=== PATIENT | male | born 1960 | race Caucasian/White ===

== ENCOUNTER 2017-07-24 22:47 | Emergency (ER) | payer OTHER ==
[~2017-07-24] VITALS: Ht 182.9 cm; Wt 79.4 kg
--- NOTE | 2017-07-24 22:51 | ED AMS/SEIZURE/WEAK/DIZZY ---
History of Present Illness General Chief Complaint: ETOH/Drug Related Complaint Stated Complaint: BIBA FOR UNRESPONSIVE Source: EMS Exam Limitations: clinical condition Vital Signs & Intake/Output Vital Signs & Intake/Output Vital Signs Date Time Temp Pulse Resp B/P B/P Pulse O2 O2 Flow FiO2 Mean Ox Delivery Rate 07/25 0832 98.2 146 20 129/87 94 Room Air 07/25 0247 97.5 89 18 149/80 97 Nasal 2.0L Cannula 07/25 0039 98.0 81 18 125/79 94 Nasal 2.0L Cannula 07/24 2345 97.9 88 20 153/80 99 Room Air 07/24 2256 98.3 82 18 168/99 98 Room Air ED Intake and Output 07/25 0000 07/24 1200 Intake Total 5 Output Total Balance 5 Intake, IV 5 Patient 175 lb Weight Weight Estimated Measurement Method Allergies Coded Allergies: No Known Allergies (07/25/17) Triage Nurses Notes Reviewed? yes Onset: Abrupt Duration: minute(s): Timing: single episode today Injury Environment: home Severity: moderate Modifying Factors: Improves With: rest. Associated Symptoms: confusion HPI: 56 yo gentleman brought in by ambulance presents with mental status change. Per the medics, he was found unconscious in the hallway of a hotel. 911 was called. When they arrived, he was awake, speaking with slurred speech, smelling of etoh. He was combative en route. He denies trauma or pain. (Blaine BAÑUELOS,Kunal Cevallos) Reconcile Medications No Known Home Medications (Stephanie BAÑUELOS,Finn Apodaca) Past History Travel History Traveled to [place] past 21 day No Medical History Any Pertinent Medical History? see below for history (unknown due to pt condition) Surgical History Surgical History: unobtainable Psychosocial History What is your primary language Scottish Family History Hx Contributory? No (Blaine BAÑUELOS,Kunal Cevallos) Review of Systems Review of Systems Constitutional: Reports: no symptoms. EENTM: Reports: no symptoms. Respiratory: Reports: no symptoms. Cardiovascular: Reports: no symptoms. GI: Reports: no symptoms. Genitourinary: Reports: no symptoms. Musculoskeletal: Reports: no symptoms. Skin: Reports: no symptoms. Neurological/Psychological: Reports: no symptoms. Hematologic/Endocrine: Reports: no symptoms. Immunologic/Allergic: Reports: no symptoms. All Other Systems: Reviewed and Negative (Kunal Valladares MD) Physical Exam Physical Exam General Appearance: well developed/nourished, no apparent distress Head: atraumatic, normal appearance Eyes: Bilateral: normal appearance. Ears, Nose, Throat: normal pharynx, normal ENT inspection Neck: normal inspection, no midline tenderness Respiratory: normal breath sounds, chest non-tender, no respiratory distress Cardiovascular: regular rate/rhythm Gastrointestinal: normal bowel sounds, soft, non-tender Back: normal inspection, normal range of motion Extremities: normal range of motion, evidence of injury Neurologic/Psych: no motor/sensory deficits, awake, alert Skin: intact, normal color Comments: pt wearing red cocktail dress and panty hose Core Measures ACS in differential dx? No CVA/TIA Diagnosis No Sepsis Present: No Sepsis Focused Exam Completed? No (Kunal Valladares MD) Progress Differential Diagnosis: alcohol intoxication, dehydration, electrolyte imbalance , intracranial Hem. Plan of Care: Orders Procedure Date/time Status Regular Diet 07/25 B Active Code Status 07/24 2319 Active URINE DRUG SCREEN FOR ER ONLY 07/24 2252 Complete TROPONIN LEVEL 07/24 2252 Complete ETHANOL 07/24 2252 Complete COMPREHENSIVE METABOLIC PANEL 07/24 2252 Complete CBC WITHOUT DIFFERENTIAL 07/24 2252 Complete EKG 07/24 2252 Active Current Medications Sig/Azucena Start time Last Medication Dose Stop Time Status Admin Sodium Chloride 1,000 ML BOLUS ONE 07/25 0830 AC 07/25 (Normal Saline 0.9%) 07/25 0929 0835 Laboratory Tests 07/24/17 2310: Anion Gap 19 H, Estimated GFR > 60, BUN/Creatinine Ratio 20.0, Glucose 97, Calcium 9.2, Total Bilirubin 0.4, AST 33, ALT 37, Alkaline Phosphatase 59, Troponin I < 0.01, Total Protein 8.5 H, Albumin 4.9, Globulin 3.6, Albumin/ Globulin Ratio 1.4, CBC w Diff NO MAN DIFF REQ, RBC 5.40, MCV 99.4 H, MCH 32.9 H, RDW 15.5 H, MPV 6.9 L, Gran % 60.9, Lymphocytes % 34.6, Monocytes % 3.5, Eosinophils % 0.8, Basophils % 0.2, Absolute Granulocytes 6.2, Absolute Lymphocytes 3.5 H, Absolute Monocytes 0.4, Absolute Eosinophils 0.1, Absolute Basophils 0, PUBS MCHC 33.1, Serum Alcohol 484.0 Diagnostic Imaging: Viewed by Me: CT Scan. Discussed w/RAD: CT Scan. Radiology Impression: head/cervical ct... no acute fx/bleed PATIENT: PATSY RAMOS PRESENT AGE: 56 PATIENT ACCOUNT NO: [id number] : 62 LOCATION: [facility] ORDERING PHYSICIAN: Kunal Valladares MD SERVICE DATE: 07/24/17 EXAM TYPE: CAT - CT CERV SPINE WO IV CONTRAST; CT HEAD WO IV CONTRAST EXAMINATION: CT HEAD WITHOUT CONTRAST CT CERVICAL SPINE WITHOUT CONTRAST CLINICAL INFORMATION: Mental status change, fall. COMPARISON: None. TECHNIQUE: Contiguous axial imaging was performed from the skull base to vertex without intravenous administration of contrast. Multidetector helical imaging was performed through the cervical spine. Coronal and sagittal reformats were completed at the technologist workstation. DLP: 648 mGy-cm. FINDINGS: HEAD: There is no evidence of acute intracranial hemorrhage or evolved territorial infarction. No abnormal mass effect or midline shift is seen. Cortical alvarado to white matter differentiation is well preserved without evidence of territorial infarct. No extra-axial fluid collections are identified. No hydrocephalus. The osseous structures and scalp soft tissues are normal. The mastoid air cells are well aerated. There is moderate opacification of the left maxillary sinus. Mild mucosal sinus disease of the right maxillary sinus and ethmoid air cells are noted. CERVICAL SPINE: No acute fracture or dislocation is identified in the cervical spine. Vertebral body heights are maintained. The atlantoaxial articulation is normally maintained. No prevertebral soft tissue swelling. The lung apices are clear. There is a chronic deformity of the left clavicle. There is mild multilevel spondylosis. A focal disc protrusion is noted at C5-C6. A prominent disc osteophyte complex is noted at C6-C7. IMPRESSION: 1. No acute intracranial pathology. 2. No evidence of acute cervical spine traumatic injury. 3. Paranasal sinus disease. 4. Mild multilevel cervical spondylosis most prominent at C5-C6. DICTATED BY: Jaleel Barakat MD DATE/TIME DICTATED:07/25/1715 WASTEWATER MANAGER:NAT DATE/TIME TRANSCRIBED:07/25/1715 CONFIDENTIAL, DO NOT COPY WITHOUT APPROPRIATE AUTHORIZATION. <Electronically signed in Other Vendor System> SIGNED BY: Jaleel Barakat MD 07/25/17 0026 Initial ED EKG: NSR, nonspecific ST T wave chg, no acute change Hand-Off Endorsed To: Finn Brown MD Endorsed Time: 0700 Pending: labs, other (clinical sobriety) (Blaine BAÑUELOS,Kunal Cevallos) Comments: Patient is awake alert and oriented 3. Patient's ex- is here to pick him up. Patient walks with a steady gait. Patient denies any suicidal or homicidal ideation. Patient is stable for discharge. (Finn Brown MD) Departure Departure Disposition: HOME OR SELF CARE Condition: Stable Clinical Impression Primary Impression: Alcohol intoxication Referrals: Elie BAÑUELOS,Adrian Montano (PCP/Family) Departure Forms: Customer Survey General Discharge Information PA/PIPE FITTER APPRENTICE Co-Sign Statement Statement: ED Attending supervision documentation- [x] I saw and evaluated the patient. I have also reviewed all the pertinent lab results and diagnostic results. I agree with the findings and the plan of care as documented in the PA's/PIPE FITTER APPRENTICE's documentation. 07/24/17, 23:17... evaluated patient in ct scan suite... pt with mid epigastric tenderness, but appears to be more comfortable after supportive medications. pt merits admission, iv fluids, parenteral pain medications, and management of his pancreatitis. [] I have reviewed the ED Record and agree with the PA's/PIPE FITTER APPRENTICE's documentation. [] Additions or exceptions (if any) to the PAs/PIPE FITTER APPRENTICE's note and plan are summarized below: [] (Blaine BAÑUELOS,Kunal Cevallos) Departure Additional Instructions: RETURN FOR ANY CONCERNS Prescriptions: Current Visit Scripts No Known Home Medications (Finn Brown MD)
[2017-07-24 23:24] LABS: ABSOLUTE BASOPHIL COUNT 0 /CUMM (0.0-0.2); ABSOLUTE EOSINOPHIL COUNT 0.1 /CUMM (0.0-0.7); ABSOLUTE GRANULOCYTE CT 6.2 /CUMM (1.4-6.5); ABSOLUTE LYMPH COUNT 3.5 /CUMM (1.2-3.4); ABSOLUTE MONOCYTE COUNT 0.4 /CUMM (0.10-0.60); BASOPHIL % 0.2 % (0.0-2.0); EOSINOPHIL % 0.8 % (0-5); GRANULOCYTE % 60.9 % (42.2-75.2); HEMATOCRIT 53.7 % (42-52); MEAN CORPUSCULAR HGB 32.9 PG (27.0-31.0); MEAN CORPUSCULAR HGB CONC 33.1 G/DL (33.0-37.0); MEAN CORPUSCULAR VOLUME 99.4 FL (80.0-94.0); MEAN PLATELET VOLUME 6.9 FL (7.4-10.4); PLATELET COUNT 298 /CUMM (130-400); RBC DISTRIBUTION WIDTH 15.5 % (11.5-14.5); WHITE BLOOD CELL COUNT 10.2 /CUMM (4.8-10.8)
--- NOTE | 2017-07-25 00:26 | CT SCAN REPORT ---
EXAMINATION: CT HEAD WITHOUT CONTRAST CT CERVICAL SPINE WITHOUT CONTRAST CLINICAL INFORMATION: Mental status change, fall. COMPARISON: None. TECHNIQUE: Contiguous axial imaging was performed from the skull base to vertex without intravenous administration of contrast. Multidetector helical imaging was performed through the cervical spine. Coronal and sagittal reformats were completed at the technologist workstation. DLP: 648 mGy-cm. FINDINGS: HEAD: There is no evidence of acute intracranial hemorrhage or evolved territorial infarction. No abnormal mass effect or midline shift is seen. Cortical alvarado to white matter differentiation is well preserved without evidence of territorial infarct. No extra-axial fluid collections are identified. No hydrocephalus. The osseous structures and scalp soft tissues are normal. The mastoid air cells are well aerated. There is moderate opacification of the left maxillary sinus. Mild mucosal sinus disease of the right maxillary sinus and ethmoid air cells are noted. CERVICAL SPINE: No acute fracture or dislocation is identified in the cervical spine. Vertebral body heights are maintained. The atlantoaxial articulation is normally maintained. No prevertebral soft tissue swelling. The lung apices are clear. There is a chronic deformity of the left clavicle. There is mild multilevel spondylosis. A focal disc protrusion is noted at C5-C6. A prominent disc osteophyte complex is noted at C6-C7. IMPRESSION: 1. No acute intracranial pathology. 2. No evidence of acute cervical spine traumatic injury. 3. Paranasal sinus disease. 4. Mild multilevel cervical spondylosis most prominent at C5-C6.
[2017-07-25 09:22] VITALS: BP 122/84
== END 2017-07-25 09:23 ==
LOC: ERH 22:47
PROVIDERS: Pediatrics
DX: F10.129 Alcohol abuse with intoxication, unspecified (principal); R47.81 Slurred speech
CPT/HCPCS: 80307; 93005; 93010; 96361; 96372; 96374; G0480; J1630

== ENCOUNTER 2017-08-11 17:52 | Inpatient (IN) | payer OTHER ==
[~2017-08-11] VITALS: Ht 182.9 cm; Wt 80.4 kg
--- NOTE | 2017-08-11 17:56 | ED PSYCHIATRIC COMPLAINT ---
See Addendum History of Present Illness General Chief Complaint: Psychiatric Related Complaint Stated Complaint: +SI, +ETOH Source: patient, EMS Exam Limitations: intoxication Vital Signs & Intake/Output Vital Signs & Intake/Output Vital Signs Date Time Temp Pulse Resp B/P B/P Pulse O2 O2 Flow FiO2 Mean Ox Delivery Rate 08/13 0645 97.5 75 18 163/99 08/13 0645 97.5 75 18 163/99 97 Room Air 08/13 0430 97.4 74 18 154/88 08/13 0430 97.4 74 18 154/88 98 Room Air 08/13 0230 97.4 62 16 160/85 08/13 0230 97.4 62 16 160/85 97 Room Air 08/13 0030 97.5 74 16 158/86 08/13 0030 97.5 74 16 158/86 96 Room Air 08/12 2228 97.6 84 16 155/88 95 Room Air 08/12 2102 Room Air 08/12 2102 97.4 76 16 150/90 98 Room Air 08/12 2101 97.4 76 16 150/90 08/12 1805 98.2 92 18 160/96 98 Room Air 08/12 1538 97.5 84 18 172/94 98 Room Air 08/12 1537 97.5 84 18 172/94 08/12 1334 98.6 98 20 168/108 98 08/12 1254 98.4 104 18 168/100 98 Room Air 08/12 0944 98.6 98 18 168/88 08/12 0944 98.6 98 18 168/88 98 Room Air ED Intake and Output 08/13 0000 08/12 1200 Intake Total 425 Output Total 375 Balance 50 Intake, Oral 425 Output, Urine 375 Allergies Coded Allergies: No Known Allergies (07/25/17) Reconcile Medications No Known Home Medications Triage Note: BIBA ON PEER FOR +SI ALONG WITH ETOH ABUSE. PER PEER PT HAS BEEN DRINKING HEAVILY SINCE LAST NIGHT AND MAKING STATEMENTS THAT THERE IS NO REASON TO LIVE. UPON ARRIVAL PT ADMITS TO DRINKING AT LEAST 1 QUART OF LIQUOR TODAY. RELUCTANT TO ADMIT TO SI BUT GIRLFRIEND CONFIRMS HE HAS BEEN MAKING SI STATESMENTS. PT ASKING WHEN HE CAN GO HOME AND UPSET WHEN TOLD HE WILL LIKELY BE IN HOSPITAL AT LEAST OVERNIGHT DUE TO BEING ON A PEER. PT BECOMING SOMEWHAT AGIATED ABOUT THIS AND PRESENCE OF GIRLFRIEND UPSETTING HIM. VISITORS ASKED TO LEAVE FOR NOW Triage Nurses Notes Reviewed? yes Onset: Gradual Timing: recent history Severity: severe HPI: Patient is a 56-year-old male with history of alcohol abuse presenting to the emergency department via EMS for alcohol abuse and suicidal ideation. According to the patient he was very angry with himself today so he continued to drink throughout the day. His sister became concerned and called police. Patient was transported via EMS to the hospital for evaluation. Patient denies any nausea or vomiting fevers or chills chest pain or shortness of breath. Patient denies any hallucinations. No history of withdrawal seizures. Positive smoker, denies other drugs besides alcohol. He usually drinks half a pack daily, today he drank much more he reports. The sister found him passed out in the snow, unsure how long he was therefore. Patient denies hitting his head. No LOC. (Robina Burks) Past History Medical History Any Pertinent Medical History? see below for history Surgical History Surgical History: unobtainable Psychosocial History What is your primary language Slovenian Family History Hx Contributory? No (Robina Burks) Review of Systems Review of Systems Constitutional: Reports: see HPI. Comments Review of systems: See HPI, All other systems negative. Constitutional, no chills fever or weight loss HEENT: No visual changes no sore throat no congestion Cardiovascular: No palpitation, NO CP Skin, no jaundice no rashes Respiratory: No dyspnea cough sputum or hemoptysis GI: No nausea no vomiting : No dysuria No hematuria Muscle skeletal: no back pain, no neck pain, Neurologic: No numbness no headaches Psych: No stress anxiety or depression,. Heme/endocrine: No bruising no bleeding no polyuria or polydipsia Immunology: No splenectomy or history of AIDS (Robina Burks) Physical Exam Physical Exam General Appearance: intoxicated Neurological/Psychiatric: awake, INTOXICATION Comments: Well-developed well-nourished person in no acute distress HEENT: Pupils equally round and reactive to light and accommodation. Pupils approximately 3 mm bilaterally. Nose is atraumatic. Neck: Normal inspection Cardiovascular: Regular rate and rhythms no murmurs rubs or gallops, normal JVP Respiratory: No respiratory distress.breath sounds clear to auscultation bilaterally Extremity: No edema Neuro: Alert oriented x3, cranial nerves II through XII grossly intact. Skin: No appreciable rash on exposed skin, skin is warm and dry. Psych: Appears intoxicated, laughing throughout exam, avoidANT SAD PERSONS SAD PERSONS Response Value Male Sex? yes 1 Age <19 or >45 years? yes 1 Depression/Hopelessness? yes 2 Excessive Ethanol/Drug Use? yes 1 Rational Thinking Loss? yes 2 Social Support? has support 0 Total 7 SAD PERSONS Done? yes (Robina Burks) Progress Differential Diagnosis: drug intoxication, drug overdose, drug withdrawal, electrolyte abnormality, encephalitis, hypoglycemia Plan of Care: Orders Procedure Date/time Status Continuous Observation Monitor 08/13 0700 Active Continuous Observation Monitor 08/13 0300 Active Continuous Observation Monitor 08/12 2300 Active Continuous Observation Monitor 08/12 1900 Active Continuous Observation Monitor 08/12 1500 Active Continuous Observation Monitor 08/12 1100 Active Continuous Observation Monitor 08/12 0700 Active Current Medications Sig/Azucena Start time Last Medication Dose Stop Time Status Admin Lorazepam 2 MG 0800 08/12 1615 AC 08/13 (Ativan) 0757 Nicotine 21 MG DAILY 08/11 2117 UNVr 08/12 (Nicoderm) 1025 1 AM ETOH, SUICIDAL COMMENTS TO HIS SISTER. WILL NEED CRISIS EVALUATION WHEN SOBER. (Shira Joy MD) Diagnostic Imaging: Viewed by Me: Radiology Read, CT Scan. Discussed w/RAD: Radiology Read, CT Scan. Hand-Off Endorsed To: Shira Joy MD Endorsed Time: 0100 Pending: consult Comments: She will be signed out to Dr. JOY pending reevaluation in the morning. (Robina Burks) Hand-Off Endorsed To: Celestine Long MD Endorsed Time: 07 Pending: consult (CRISIS) (Shira Joy MD) Comments: 08:30 pt signed out to me by dr joy at shift changeover. pt resting comfortably. 08/12/2017 7:00:26 PM patient signed out to Dr. Lopez at shift global climate change analyst. (Celestine Long MD) Hand-Off Endorsed To: Celestine Cerda DO Endorsed Time: 0700 Pending: other (CPS bed or bedsearch) (Jessica BAÑUELOS,Mathew) Departure Departure Disposition: STILL A PATIENT Condition: Stable Referrals: Elie BAÑUELOS,Adrian Montano (PCP/Family) Departure Forms: Customer Survey General Discharge Information Prescriptions: Current Visit Scripts No Known Home Medications (Víctor BARRETO,Robina) Departure Clinical Impression Primary Impression: Depression with suicidal ideation Secondary Impressions: Alcohol abuse (Jessica BAÑUELOS,Mathew) Departure Comments 08/13/17 7 am The patient was signed out to me by Dr. Lopez at 7 am. (Celestine Cerda DO)
[2017-08-11 18:58] LABS: ABSOLUTE BASOPHIL COUNT 0 /CUMM (0.0-0.2); ABSOLUTE EOSINOPHIL COUNT 0.3 /CUMM (0.0-0.7); ABSOLUTE GRANULOCYTE CT 6.1 /CUMM (1.4-6.5); ABSOLUTE LYMPH COUNT 3.2 /CUMM (1.2-3.4); ABSOLUTE MONOCYTE COUNT 0.3 /CUMM (0.10-0.60); BASOPHIL % 0.3 % (0.0-2.0); GRANULOCYTE % 61.6 % (42.2-75.2); HEMATOCRIT 49.5 % (42-52); MEAN CORPUSCULAR HGB 33.3 PG (27.0-31.0); MEAN CORPUSCULAR HGB CONC 33.8 G/DL (33.0-37.0); MEAN CORPUSCULAR VOLUME 98.4 FL (80.0-94.0); MEAN PLATELET VOLUME 7.3 FL (7.4-10.4); PLATELET COUNT 368 /CUMM (130-400); RBC DISTRIBUTION WIDTH 15.1 % (11.5-14.5); RED BLOOD CELL CT 5.03 /CUMM (4.70-6.10)
[2017-08-12] VITALS (7 sets, daily range): BP systolic 116–172; BP diastolic 63–94
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
[2017-08-13] VITALS (13 sets, daily range): BP systolic 142–163; BP diastolic 85–99
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
--- NOTE | 2017-08-13 14:42 | History & Physical ---
General Information and HPI MD Statement: I have seen and personally examined PATSY RAMOS and documented this H&P. The patient is a 56 year old M who presented with a patient stated chief complaint of alcohol intoxication Source of Information: patient Exam Limitations: no limitations History of Present Illness: 56-year-old male with past medical history significant for alcohol dependence, some depression and arthritis who presented with acute onset: Intoxication. Patient drinks heavy amounts of alcohol on daily basis and that mainly includes vodka. He admits to drinking quart of vodka prior to coming into the hospital. In the ambulance he made the statement "I just want to and this". Therefore he is admitted to Inpatient Psychiatry with acute on: Intoxication as well as possible suicidal ideation. Patient was cooperative during the interview. He currently does not complain of some neck pain but attributes the neck pain to his arthritis. He takes Aleve as needed. He is also a current smoker. 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 Psychosocial History Where do you live? Home ETOH Use: heavy use Review of Systems Review of Systems Constitutional: Reports: see HPI. EENTM: Reports: see HPI. Cardiovascular: Reports: see HPI. Respiratory: Reports: see HPI. GI: Reports: see HPI. Musculoskeletal: Reports: see HPI. Skin: Reports: see HPI. Neurological/Psychological: Reports: see HPI. Exam & Diagnostic Data Last 24 Hrs of Vital Signs/I&O Vital Signs Date Time Temp Pulse Resp B/P B/P Pulse O2 O2 Flow FiO2 Mean Ox Delivery Rate 08/13 1434 98.5 90 153/91 08/13 1433 98.5 90 153/91 08/13 1143 98.0 74 18 145/74 99 Room Air 08/13 1129 99 Room Air 08/13 0949 Room Air Room Air 08/13 0912 98.0 88 18 149/94 98 08/13 0645 97.5 75 18 163/99 08/13 0645 97.5 75 18 163/99 97 Room Air 08/13 0430 97.4 74 18 154/88 08/13 0430 97.4 74 18 154/88 98 Room Air 08/13 0230 97.4 62 16 160/85 08/13 0230 97.4 62 16 160/85 97 Room Air 08/13 0030 97.5 74 16 158/86 08/13 0030 97.5 74 16 158/86 96 Room Air 08/12 2228 97.6 84 16 155/88 95 Room Air 08/12 2102 Room Air 08/12 2102 97.4 76 16 150/90 98 Room Air 08/12 2101 97.4 76 16 150/90 08/12 1805 98.2 92 18 160/96 98 Room Air 08/12 1538 97.5 84 18 172/94 98 Room Air 08/12 1537 97.5 84 18 172/94 Intake & Output 08/13 1600 08/13 0800 08/13 0000 Intake Total 425 Output Total 375 Balance 50 Intake, Oral 425 Output, Urine 375 Patient 177 lb Weight Physical Exam General Appearance Alert, Oriented X3, Cooperative, No Acute Distress Skin No Rashes HEENT PERRLA Neck Supple Cardiovascular Regular Rate, Normal S1, Normal S2 Lungs Clear to Auscultation Abdomen Normal Bowel Sounds, Soft, No Tenderness Neurological Cranial Nerves II through XII: Intact Extremities No Edema Last 24 Hrs of Labs/Jn: Laboratory Tests 08/11 08/11 1820 1815 Chemistry Sodium (137 - 145 mmol/L) 150 H Potassium (3.5 - 5.1 mmol/L) 4.3 Chloride (98 - 107 mmol/L) 108 H Carbon Dioxide (22 - 30 mmol/L) 23 Anion Gap (5 - 16) 18 H BUN (9 - 20 mg/dL) 12 Creatinine (0.7 - 1.2 mg/dL) 0.9 Estimated GFR (>60 ml/min) > 60 BUN/Creatinine Ratio (7 - 25 %) 13.3 Glucose (65 - 99 mg/dL) 91 Calcium (8.4 - 10.2 mg/dL) 9.3 Total Bilirubin (0.2 - 1.3 mg/dL) 0.2 AST (17 - 59 U/L) 37 ALT (21 - 72 U/L) 51 Alkaline Phosphatase (< 127 U/L) 64 Total Protein (6.3 - 8.2 g/dL) 8.2 Albumin (3.5 - 5.0 g/dL) 4.9 Globulin (1.9 - 4.2 gm/dL) 3.3 Albumin/Globulin Ratio (1.1 - 2.2 %) 1.5 Amylase (30 - 110 U/L) 40 Lipase (23 - 300 U/L) 115 Hematology CBC w Diff NO MAN DIFF REQ WBC (4.8 - 10.8 /CUMM) 10.0 RBC (4.70 - 6.10 /CUMM) 5.03 Hgb (14.0 - 18.0 G/DL) 16.7 Hct (42 - 52 %) 49.5 MCV (80.0 - 94.0 FL) 98.4 H MCH (27.0 - 31.0 PG) 33.3 H RDW (11.5 - 14.5 %) 15.1 H Plt Count (130 - 400 /CUMM) 368 MPV (7.4 - 10.4 FL) 7.3 L Gran % (42.2 - 75.2 %) 61.6 Lymphocytes % (20.5 - 51.1 %) 31.7 Monocytes % (1.7 - 9.3 %) 3.4 Eosinophils % (0 - 5 %) 3.0 Basophils % (0.0 - 2.0 %) 0.3 Absolute Granulocytes (1.4 - 6.5 /CUMM) 6.1 Absolute Lymphocytes (1.2 - 3.4 /CUMM) 3.2 Absolute Monocytes (0.10 - 0.60 /CUMM) 0.3 Absolute Eosinophils (0.0 - 0.7 /CUMM) 0.3 Absolute Basophils (0.0 - 0.2 /CUMM) 0 PUBS MCHC (33.0 - 37.0 G/DL) 33.8 Toxicology Urine Opiates Screen (>2000 NG/ML) 151.00 Methadone Screen (>300 NG/ML) < 40 Barbiturate Screen (>200 NG/ML) < 60 Ur Phencyclidine Scrn (>25 NG/ML) < 6.00 Amphetamines Screen (>1000 NG/ML) < 100 U Benzodiazepines Scrn (>200 NG/ML) < 85 Urine Cocaine Screen (>300 NG/ML) < 50 Urine Cannabis Screen (>50 NG/ML) 65.30 H Serum Alcohol (<10 MG/DL) 379.0 Assessment/Plan Assessment: 56-year-old male with past medical history significant for alcohol use, depression who is admitted with acute adequate intoxication and suicidal ideation. Yesterday's labs show hypernatremia. I would repeat check the labs today. Patient has been started on Ativan per psych. He also has a nicotine patch and Nicorette gum can be used as well. Multivitamin, folate and thiamine have been ordered. Patient on some Aleve as needed for his aches and pains which we will order. As Ranked By This Provider Problem List: 1. Alcohol intoxication 2. Depression with suicidal ideation Miscellaneous Miscellaneous Documentation Attending Case Discussed With: Gisella Suazo MD Primary Care Physician: Adrian Delgadillo MD Patient sees these Specialists None Level of Patient Care: KEISHA Lares
--- NOTE | 2017-08-13 14:52 | CPS PROVIDER INIT ASMT PSYCH ---
Psychiatric Admission [employer] Officer's Note Reviewed: Yes Patient Seen and Examined: Yes Identifying Information: 56-year-old white male who presented to the emergency department on on a police emergency examination request. Chief Complaint: According to the police report the patient was "drinking heavily and wanted to drink himself to ." Reportedly, the patient has been drinking heavily and kept saying that that he has no reason to live and also reportedly or allegedly used a hypothetical gesture suggesting a gunshot wound to the head. The patient about alcohol level on arrival was 379 and the patient today acknowledges that he was intoxicated and he had no intention of actually killing himself. The patient does not own any guns and does not have access to guns. Reaction to Hospitalization: The patient was admitted voluntarily he added that he hopes that this is in a be a short stay History of Present Illness Onset of Illness: The patient reportedly had so many different treatments in the past and a total of 5 DUIs. However he has not had any DUI since for the past 10 years. Currently does not have any legal entanglements. Reportedly was sober for 9 years prior to his relapse in 2013 after his job changed. He is still employed. He reports that he has been drinking an average of 1-1/2 pints of vodka a day Circumstances Leading to Admission: Intoxication and allegedly making's make statements about hurting himself Problem(s) Justifying Need for Admission: Safety evaluation and risk assessment as well as detoxification from alcohol Past Psychiatric History Past Diagnosis(es)- if any: Alcohol use disorder, severe Past Precipitating Factors- if any: Relapsed on alcohol use - Include inpatient and outpatient treatment Treatment History: Has had several detoxifications and rehabs. He denied inpatient psychiatric hospitalizations for psychiatric reasons. Denied past history of suicide attempts. History of Suicide Attempts or Gestures No history of suicide attempts Substance Abuse History: The patient's primary substances and alcohol reported that his first drink was when he was about 17 or 18 he did have 5 DUIs the last one was 10 years ago and he did have a period of 9 years of sobriety. 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 Substance Use: No history of alcoholism or drug addictions according to the patient Suicides: No history of suicides among his blood relations Social History Living Situation: This the patient has been living with his girlfriend Tana Significant Relationships (family/friends): Girlfriend Education: High school graduate Vocation/Occupation: The patient is still currently employed Legal: Past DUIs but no current legal entanglements Healthly Behaviors Screening Tobacco Screening Tobacco Use from ED Docu: Current Daily Use Daily Tobacco Use Amount/Type: => 5 Cigarettes daily - If tobacco counseling indicated - the following topics are required. - #1 Recognizing dangerous situations. - #2 Coping Skills. - #3 Basic information about quitting. Status of Tobacco Cessation Counseling: #1, #2 AND #3 Completed Cessation Med Status Nicotine Patch Ordered Alcohol Screening - ETOH screen POS if BAL >=80 or Audit-C>= M4/F3 Audit-C Score from Diag Assess: 12 Blood Alcohol Level: Laboratory Tests 08/11 1815 Toxicology Serum Alcohol (<10 MG/DL) 379.0 Alcohol Use Screening Results: Pos per Audit C &/or BAL - If ETOH counseling indicated - the following topics are required. - #1 Express concern about the patient's - drinking at unhealthy levels, include informing - of national norms for moderate drinking: - men <= 14 drinks/week, max 4 drinks/occasion - women <= 7 drinks/week, max 3 drinks/occasion - #2 Providing feedback, including linking alcohol to - negative physical effects (liver injury, hypertension) - negative emotional effects (relationship problems and - depression) - negative occupational consequences (reduced work - performance) - #3 Advising the patient to abstain from alcohol or - to drink below national norms for moderate drinking - (as listed above). Status of ETOH Use Counseling: #1, #2 AND #3 Completed. Metabolic Screening - Screen if on a Neuroleptic Medication - Metabolic screening should include: - Blood Pressure, BMI, Glucose or Hgb A1c, & a - Lipid profile from within the past 365 days. Metabolic Screening (X) Not Applicable, patient not on a neuroleptic. OR () Patient on a neuroleptic(s) . Enter below results for Hemoglobin A1C, and lipid panel if obtained during the last 365 days. BMI: 24.000 Blood Pressure: 153/91 Laboratory Results From [facility] (If applicable): Exam and Plan Mental Status Examination Ambulation Status: The patient was steady on his feet Appearance: Patient has untrimmed ray Attitude towards examiner: Cooperative and calm and pleasant with good sense of humor Psychomotor activity: Normal psychomotor activity Behavior: No abnormalities Quality of speech: Normal speech not pressured not slurred Affect: Euthymic Mood: Denied current depression or anxiety Suicidal Ideation: Denies suicidal ideation Homicidal Ideation: Denies violent thoughts or homicidal ideation Hallucinations: Denied hallucinations Paranoid/Delusional Material: Denied feeling paranoid and there were no delusions Difficulties with thought organization: No difficulties with thought organization Insight: Partial insight Judgment: Seems intact Orientation: Oriented to time place and person Cognition: No cognitive deficits Memory Function: No impairments in memory Estimate of intellectual functioning: Average Assets/Strengths Patient Identified Assets/Strengths: Patient seems to be likable and honest Impression/Plan Impression and Plan: 56-year-old white male presented to the emergency department primarily seeking detoxification but was admitted because of allegedly making suicidal statements while intoxicated - Include all active medical diagnosis that require tx DSM 5 Diagnosis(es): Unspecified mood disorder Alcohol use disorder severe - Initial Tx Plan for Active Psych & Medical Conditions Treatment Plan: Inpatient psychiatric care 15 minute checks Ativan taper Additional Ativan for signs or symptoms of withdrawal Nursing staff to provide education and nursing assessments once a shift Group therapy Milieu therapy in Social work to obtain collateral information and start the process of discharge planning no regularly scheduled psychotropics at this point. The patient will be evaluated daily by a psychiatrist - Factors that would help patient function - in a less restrictive setting. Factors: Abstinence from alcohol
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
[2017-08-14] VITALS (10 sets, daily range): BP systolic 142–172; BP diastolic 85–95
--- NOTE | 2017-08-14 08:41 | CP SOUTH PROGRESS NOTE PSYCH ---
Psych (Inpt) Progress Note Progress Note PROGRESS NOTE SUBJECTIVE: Patient reports that he is doing very well with alcohol detox, feels that he has too much Ativan requesting lowering of the dose. Patient feels he is over sedated and "loopy" with the Ativan. Patient in agreement with lowering dose to 1 mg night and 0.5 mg in the morning and reassess. Denies any symptoms of withdrawal currently. Feels like he could stop the Ativan out right. Patient denies any other physical complaints or illness. Patient reports sleeping and eating well. Visiting with sister on the unit now. Denies SI/HI/AVH/SIB. No abnormal movements reported. Patient feels that he "said something stupid" while intoxicated regarding SI that brought him into the ED patient agrees that he should've been sent and under that circumstance however is feeling much better now, regrets that he said that, states "I ran my mouth when I was drunk." Patient states that he has work on Wednesday and also an appointment with [facility] 5 evenings a week starting August 25. Patient would be interested in discussing if the intake appointment could be moved up. Reviewed meds and psychoeducation provided. OBJECTIVE: Per nursing, pt did well overnight without any acute events. Pt remained in behavioral control, adherent with staff instructions and medications. VSS. Current Medications Sig/Azucena Start time Last Medication Dose Route Stop Time Status Admin Acetaminophen 650 MG Q6P PRN 08/13 1015 AC PO Al Hydroxide/Mg 30 ML Q4-6 PRN PRN 08/13 1015 AC Hydroxide PO Benztropine Mesylate 1 MG Q6P PRN 08/13 1015 AC PO Benztropine Mesylate 1 MG Q6P PRN 08/13 1015 AC IM Folic Acid 1 MG DAILY 08/14 1000 AC PO 08/16 1001 Folic Acid 0 .STK-MED ONE 08/13 0852 DC PO Gabapentin 300 MG Q6P PRN 08/13 1015 AC PO Haloperidol 5 MG Q6P PRN 08/13 1015 AC PO Haloperidol 5 MG Q6P PRN 08/13 1015 AC IM Lorazepam 0.5 MG 0000 08/18 0000 AC PO 08/18 0001 Lorazepam 0.5 MG Q6H 08/17 0000 AC PO 08/17 1801 Lorazepam 0.5 MG 1800 08/16 1800 AC PO 08/16 1801 Lorazepam 1 MG Q6H 08/16 0000 AC PO 08/16 1201 Lorazepam 1.5 MG Q12H 08/15 0600 AC PO 08/15 1801 Lorazepam 1 MG Q12H 08/15 0000 AC PO 08/15 1201 Lorazepam 1.5 MG Q6 08/14 0600 AC 08/14 PO 08/14 1801 0545 Lorazepam 2 MG Q6 08/13 1200 DC 08/13 PO 08/14 0001 2330 Lorazepam 0 .STK-MED ONE 08/13 1136 DC PO Lorazepam 2 MG Q6P PRN 08/13 1015 AC IM Lorazepam 2 MG Q2P PRN 08/13 1015 AC PO Lorazepam 1 MG Q2P PRN 08/13 1015 AC PO Lorazepam 2 MG 0800 08/12 1615 DC 08/13 PO 0757 Magnesium Hydroxide 30 ML AT BEDTIME NEED.. 08/13 1015 AC PO Multivitamins 1 TAB DAILY 08/14 1000 AC PO Multivitamins 0 .STK-MED ONE 08/13 0852 DC PO Naproxen 500 MG BID PRN 08/13 1445 AC PO Nicotine 2 MG Q2 HRS NEEDED PRN 08/13 1430 AC 08/13 PO 2121 Nicotine 0 .STK-MED ONE 08/13 1045 DC TOP Nicotine 21 MG DAILY 08/11 2117 AC 08/13 TOP 1046 Thiamine HCl 100 MG DAILY 08/14 1000 AC PO 08/16 1001 Thiamine HCl 0 .STK-MED ONE 08/13 1045 DC PO Thiamine HCl 100 MG ONCE ONE 08/13 1030 DC 08/13 PO 08/13 1031 1046 Trazodone HCl 50 MG AT BEDTIME NEED.. 08/13 1015 AC PO Laboratory Tests 08/14/17 0625: Anion Gap 12, Estimated GFR > 60, BUN/Creatinine Ratio 18.8, Hemoglobin A1c Pending, Triglycerides 136, Cholesterol 205 H, LDL Cholesterol, Calc 102, HDL Cholesterol 76 H, Cholesterol/HDL Ratio 3, TSH &T3 &Free T4 Intrp 3.170 08/13/17 1520: Anion Gap 15, Estimated GFR > 60, BUN/Creatinine Ratio 23.3 Vital Signs Date Time Temp Pulse Resp B/P B/P Pulse O2 O2 Flow FiO2 Mean Ox Delivery Rate 08/14 0759 97.5 99 146/94 08/14 0757 97.5 99 146/94 08/14 0544 96.6 75 99 172/95 08/13 2327 75 142/99 08/13 2201 79 147/88 08/138 98.0 95 142/93 08/13 1950 98.0 95 142/93 08/13 1905 89 156/90 08/13 1624 89 144/93 08/13 1615 89 144/93 08/13 1434 98.5 90 153/91 08/13 1433 98.5 90 153/91 08/13 1143 98.0 74 18 145/74 99 Room Air 08/13 1129 99 Room Air 08/13 0949 Room Air Room Air 08/13 0912 98.0 88 18 149/94 98 MSE: GENERAL: Alert and oriented x3, good eye contact, well-groomed, no apparent distress SPEECH: Moderate rate and volume, normal prosody, fluent MOTOR: No tics, tremors, stereotypy, or abnormal movements MOOD: "I'm really doing fine now" AFFECT: Calm, pleasant, mood congruent, good range, non-labile, well related THOUGHT PROCESS: Logical, linear and goal-directed THOUGHT CONTENT: No SI/HI/AVH/SIB, no apparent grandiosity, paranoia, delusions , obsessions, ruminations COGNITION: No apparent deficit in attention, memory or concentration JUDGMENT: good INSIGHT: good ASSESSMENT:56-year-old white male presented to the emergency department primarily seeking detoxification but was admitted because of allegedly making suicidal statements while intoxicated. At this time patient feels remorse over making any statements, feels like they were just "running my mouth" while intoxicated, denies past or any current SI/HI/AVH/SIB. Patient appears future oriented and forthcoming, well related with most of reasonable discharge plan already in place ([facility] starting 08/25/2017). Appears quickly moving through detox and tolerating medication regimen well. Discussed naltrexone as a possible anti-craving medication, patient will consider. DSM 5 Diagnosis(es): Unspecified mood disorder Alcohol use disorder severe PLAN: -maintain safety, vs tid, q15min checks -continue meds -changing ativan taper to 1 mg this evening and 0.5 mg po bid tomorrow -pt would like to see if SW could assist in moving up his intake appointment with [facility] -continue plan, likely dc Wednesday DSM 5 Diagnosis(es): Unspecified mood disorder Alcohol use disorder severe PLAN: -maintain safety, vs tid, q15min checks -continue meds -ativan taper for withdrawal -continue plan Alcohol use disorder severe PLAN: -maintain safety, vs tid, q15min checks -continue meds -ativan taper for withdrawal -continue plan
[2017-08-15] VITALS (7 sets, daily range): BP systolic 129–160; BP diastolic 84–95
--- NOTE | 2017-08-15 02:06 | CP SOUTH PROGRESS NOTE PSYCH ---
Psych (Inpt) Progress Note Progress Note Include the following elements, when applicable: Involvement in the active treatment of the patient with behavioral observations of the patient and the patient's response to the treatment. Review of the ongoing treatment process in the context of the treatment plan. Indication of how multi-disciplinary staff members are carrying out the treatment plan. Plans for future interventions and recommendations for revision of the treatment plan. Liaison with other physicians/providers. Progress Note: PROGRESS NOTE SUBJECTIVE: Patient reports that he is feeling "fine" today, feels like he is at his baseline, no signs or symptoms of alcohol withdrawal at this time. Patient did well with rapid lowering of Ativan from 1.5 mg 3 times a day yesterday to 1 mg last night and 0.5 mg this morning, CIWA scores have been 0 for 2 days. Will discontinue Ativan at this time, patient in agreement. Patient awoke with some right eye pain and swelling this morning, was seen by medicine. Patient has chalazion with instructions to use warm compresses several times a day, which she has been doing. Patient denies any other physical complaints or illness. Patient reports sleeping and eating well. Patient has visited with his girlfriend and his sister today. 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 Denies SI/HI/AVH/SIB. Patient feels remorseful over SI statement while he was intoxicated and has not felt any SI since being sober this admission. Patient has an IOP intake appointment on 08/25/2017 but would be interested in moving up the appointment if criminal justice social worker to assist with that Wednesday morning. Patient interested in starting naltrexone, risks and benefits discussed, labs reviewed, pt in agreement. OBJECTIVE: Per nursing, pt did well overnight without any acute events. Pt remained in behavioral control, adherent with staff instructions and medications. VSS. Current Medications Sig/Azucena Start time Last Medication Dose Route Stop Time Status Admin Acetaminophen 650 MG Q6P PRN 08/13 1015 AC PO Al Hydroxide/Mg 30 ML Q4-6 PRN PRN 08/13 1015 AC Hydroxide PO Benztropine Mesylate 1 MG Q6P PRN 08/13 1015 AC PO Benztropine Mesylate 1 MG Q6P PRN 08/13 1015 AC IM Folic Acid 1 MG DAILY 08/14 1000 AC 08/15 PO 08/16 1001 1017 Gabapentin 300 MG Q6P PRN 08/13 1015 AC PO Haloperidol 5 MG Q6P PRN 08/13 1015 AC PO Haloperidol 5 MG Q6P PRN 08/13 1015 AC IM Lorazepam 0.5 MG 0000 08/18 0000 CAN PO 08/18 0001 Lorazepam 0.5 MG Q6H 08/17 0000 DC PO 08/17 1801 Lorazepam 0.5 MG 1800 08/16 1800 DC PO 08/16 1801 Lorazepam 1 MG Q6H 08/16 0000 DC PO 08/16 1201 Lorazepam 0.5 MG BID 08/15 1000 AC 08/15 PO 08/15 2201 1017 Lorazepam 1.5 MG Q12H 08/15 0600 DC PO 08/15 1801 Lorazepam 1 MG Q12H 08/15 0000 DC PO 08/15 1201 Lorazepam 1 MG AT BEDTIME 08/14 2200 DC 08/14 PO 08/14 2201 2227 Lorazepam 1.5 MG Q6 08/14 0600 DC 08/14 PO 08/14 1801 1214 Lorazepam 2 MG Q6P PRN 08/13 1015 AC IM Lorazepam 2 MG Q2P PRN 08/13 1015 AC PO Lorazepam 1 MG Q2P PRN 08/13 1015 AC PO Magnesium Hydroxide 30 ML AT BEDTIME NEED.. 08/13 1015 AC PO Multivitamins 1 TAB DAILY 08/14 1000 AC 08/15 PO 1017 Naproxen 500 MG BID PRN 08/13 1445 AC PO Nicotine 2 MG Q2 HRS NEEDED PRN 08/13 1430 AC 08/15 PO 0729 Nicotine 21 MG DAILY 08/11 2117 AC 08/15 TOP 1018 Thiamine HCl 100 MG DAILY 08/14 1000 AC 08/15 PO 08/16 1001 1017 Trazodone HCl 50 MG AT BEDTIME NEED.. 08/13 1015 AC PO Laboratory Tests 08/14/17 0625: Anion Gap 12, Estimated GFR > 60, BUN/Creatinine Ratio 18.8, Hemoglobin A1c Pending, Triglycerides 136, Cholesterol 205 H, LDL Cholesterol, Calc 102, HDL Cholesterol 76 H, Cholesterol/HDL Ratio 3, TSH &T3 &Free T4 Intrp 3.170 08/13/17 1520: Anion Gap 15, Estimated GFR > 60, BUN/Creatinine Ratio 23.3 Vital Signs Date Time Temp Pulse Resp B/P B/P Pulse O2 O2 Flow FiO2 Mean Ox Delivery Rate 08/15 1154 78 143/92 08/15 1141 78 14392 08/15 0821 96.4 81 129/84 08/15 0816 96.4 81 129/84 08/14 2229 98.2 88 142/91 08/14 1956 98.3 96 153/94 08/14 195 98.3 96 153/94 08/14 1603 93 14385 08/14 1550 93 143 MSE: GENERAL: Alert and oriented x3, good eye contact, well-groomed, no apparent distress, washcloth over eye SPEECH: Moderate rate and volume, normal prosody, fluent MOTOR: No tics, tremors, stereotypy, or abnormal movements MOOD: "Im back to normal, ready to go" AFFECT: Calm, pleasant, mood congruent, good range, non-labile, well related THOUGHT PROCESS: Logical, linear and goal-directed THOUGHT CONTENT: No SI/HI/AVH/SIB, no apparent grandiosity, paranoia, delusions , obsessions, ruminations COGNITION: No apparent deficit in attention, memory or concentration JUDGMENT: good INSIGHT: good ASSESSMENT: 56-year-old white male presented to the emergency department primarily seeking detoxification but was admitted because of allegedly making suicidal statements while intoxicated. At this time patient feels remorse over making any statements, feels like they were just "running my mouth" while intoxicated, denies past or any current SI/HI/AVH/SIB. Patient appears future oriented and forthcoming, well related, mood stable. Pt tolerated rapid ativan taper, CIWAs 0 x 2 days, no ssx withdrawal. Pt in agreement with starting naltrexone as anti-caving agent, ordered NF to start tomorrow morning, counseled on liver labs and not being able to use opiates with this medication (is not taking any). Pt would like SW assistance in am to see if his [facility] intake appt could be moved up earlier than 08/25, when it is currently scheudled. Pts sister able to pick him up in the morning, will likely be ready for dc home with plan to do intake with [facility]. DSM 5 Diagnosis(es): Unspecified mood disorder Alcohol use disorder severe Chalazion PLAN: -maintain safety, vs tid, q15min checks -continue meds -dc ativan today -start naltrexone 50 mg po daily for alcohol craving -pt would like to see if SW could assist in moving up his intake appointment with [facility] earlier than 08/25 -pt should be ready for dc Wednesday am, sister available to pick him up in the morning.
[2017-08-16 07:29] VITALS: BP 143/85
[2017-08-16] MEDS ORDERED: NALTREXONE HCL50 M1 PO (08:34)
[2017-08-16] MEDS ORDERED: TRAZODONE HCL50 M1 PO (08:34)
[2017-08-16] MEDS ORDERED: GABAPENTIN300 M2 PO (08:34)
[2017-08-16] MEDS ORDERED: ATIVAN0.5 M1 PO (08:38)
--- NOTE | 2017-08-16 09:07 | DISCHARGE SUMMARY REPORT-PSYCH ---
Visit Information Visit Dates/Diagnosis' Admission Date: 08/13/2017 Discharge Date: 08/16/17 Reason for Admission: 56-year-old white male who presented to the emergency department on on a police emergency examination request. According to the police report the patient was "drinking heavily and wanted to drink himself to ." Reportedly, the patient has been drinking heavily and kept saying that that he has no reason to live and also reportedly or allegedly used a hypothetical gesture suggesting a gunshot wound to the head. The patient about alcohol level on arrival was 379 and the patient today acknowledges that he was intoxicated and he had no intention of actually killing himself. The patient does not own any guns and does not have access to guns. Psy Discharge Primary Diag: Mood Disorder Psy Discharge Secondary Diag: Alcohol Dependence Hospital Course Significant Lab Findings: Lab ALT 51 U/L 08/11/17 181 AST 37 U/L 08/11/17 181 Alkaline Phosphatase 64 U/L 08/11/17 1815 BUN 15 mg/dL 08/14/17 0625 Chloride 103 mmol/L 08/14/17 0625 Cholesterol 205 MG/DL H 08/14/17 0625 Creatinine 0.8 mg/dL 08/14/17 0625 HDL Cholesterol 76 mg/dL H 08/14/17 0625 Hemoglobin A1c 5.5 % 08/14/17 0625 LDL Cholesterol, Calc 102 mg/dL 08/14/17 0625 Potassium 4.0 mmol/L 08/14/17 0625 Sodium 140 mmol/L 08/14/17 0625 TSH &T3 &Free T4 Intrp 3.170 uIU/mL 08/14/17 0625 Total Bilirubin 0.2 mg/dL 08/11/17 1815 Total Protein 8.2 g/dL 08/11/17 1815 Triglycerides 136 mg/dL 08/14/17 0625 Serum Alcohol 379.0 MG/DL 08/11/17 1815 Urine Cannabis Screen 65.30 NG/ML H 08/11/17 1820 Course Complications: No complications, uneventful detoxification Consultations: Patient was seen by Dr. Gisella Suazo MD, on 08/13/2017 Her assessment and Plan as follows: Assessment: 56-year-old male with past medical history significant for alcohol use, depression who is admitted with acute adequate intoxication and suicidal ideation. Yesterday's labs show hypernatremia. I would repeat check the labs today. Patient has been started on Ativan per psych. He also has a nicotine patch and Nicorette gum can be used as well. Multivitamin, folate and thiamine have been ordered. Patient on some Aleve as needed for his aches and pains which we will order. Problem List: 1. Alcohol intoxication 2. Depression with suicidal ideation Primary Care Physician: Adrian Delgadillo MD Patient sees these Specialists None Level of Patient Care: [facility] Allergies: Coded Allergies: No Known Allergies (07/25/17) Hospital Course/TX Response: On 08/13/2017 Impression and Plan on admission: 56-year-old white male presented to the emergency department primarily seeking detoxification but was admitted because of allegedly making suicidal statements while intoxicated DSM 5 Diagnosis(es): Unspecified mood disorder Alcohol use disorder severe - Initial Tx Plan for Active Psych & Medical Conditions Inpatient psychiatric care 15 minute checks Ativan taper Additional Ativan for signs or symptoms of withdrawal Nursing staff to provide education and nursing assessments once a shift Group therapy Milieu therapy in Social work to obtain collateral information and start the process of discharge planning no regularly scheduled psychotropics at this point. The patient will be evaluated daily by a psychiatrist Patient had an uneventful detoxification over the weekend of Wednesday and Wednesday the and 08/15/2017. The patient was reevaluated on 08/16/2017 and he felt that he was ready for discharge. Mental status upon discharge: Guerrero reported that he has been feeling "fine"/denied feeling depressed, no signs or symptoms of alcohol withdrawal at this time, sleeping and eating well, over the weekend, visited with his girlfriend and sister, denied SI/HI, alert and oriented x3, good eye contact, well-groomed, no apparent distress, moderate rate and volume of speech, normal prosody, fluent , no tics, tremors, or abnormal movements, calm, pleasant, mood congruent, good range, non-labile, thoughts were logical, linear and goal-directed, no apparent grandiosity, paranoia, delusions, obsessions, ruminations, and no apparent deficit in attention, memory or concentration ASSESSMENT: A 56-year-old White male presented to the emergency department primarily seeking detoxification but was admitted because of allegedly making suicidal statements while intoxicated. Patient appears future oriented and forthcoming, well related, mood stable. Pt in agreement with starting naltrexone as anti-caving agent Diagnoses: Unspecified mood disorder Alcohol use disorder severe Chalazion Treatment PLAN Update: D/C Home Follow up with IOP Discharge HBIPS - Tobacco Use Treatment Offered Post DC Medications Offered: Refused Tob Medication Tx Post DC Tobacco Treatment Plan: Refused Tobacco Tx Pgm - EtOH/Drug Use D/O Treatment Offered Post DC Medications Offered: Script Given-See Med List Post DC EtOH/SubAbuse TX Plan: Car SubAbuse/Dual IOP Metabolic Screening - Screen if on a Neuroleptic Medication - Metabolic screening should include: - Blood Pressure, BMI, Glucose or Hgb A1c, & a - Lipid profile from within the past 365 days. Metabolic Screening ([X]) Not Applicable, patient not on a neuroleptic. OR () Patient on a neuroleptic(s) . Enter below results for Hemoglobin A1C, and lipid panel if obtained during the last 365 days. BMI: 24.000 Blood Pressure: 143/85 Laboratory Results From [facility] (If applicable): Discharge Instructions General Discharge Information Multiple Neuroleptics: (X) Not Applicable OR Document below three failed attempts at monotherapy, or a plan to taper to monotherapy, or augmentation of Clozapine. () Discharge Diet Regular Discharge Activity Normal DC Disposition: Home Referrals Ordered Referrals Provider Referral 08/17/17 For Groups: [[facility]] [facility] dual track for mental health and substance use Intake 08/17/17 1:15pm [address] [id number] Provider Referral 08/18/17 For Groups: Outpatient Psychiatry [facility] Smoking Cessation Group 08/18/17 4pm [address] [id number] Prescriptions Start taking the following new medications: Naltrexone HCl (Naltrexone HCl) 50 MG TABLET 50 Milligram ORAL DAILY Qty = 14 No Refills Comments: Last Taken:08/16/17 Time:0900 Gabapentin (Gabapentin) 300 MG CAPSULE 300 Milligram ORAL EVERY SIX HOURS NEEDED as needed for ANXIETY/AGITATION /INSOMNIA Qty = 45 No Refills Comments: Last Taken:NOT GIVEN IN THE HOSPITAL Time: Trazodone HCl (Trazodone HCl) 50 MG TABLET 50 Milligram ORAL AT BEDTIME NEEDED as needed for INSOMNIA Qty = 15 No Refills Comments: Last Taken:NOT GIVEN IN THE HOSPITAL Time: Lorazepam (Ativan) 0.5 MG TABLET 1 Tablet ORAL THREE TIMES Qty = 3 No Refills Comments: Last Taken:08/15/17 Time:1000 Copies To: [facility]
--- NOTE | 2017-08-16 10:00 | SOCIAL WORKER PROG NOTE PSYCH ---
Social Work Progress Note Progress Note I was informed by the team that Guerrero was stable and would most likely discharge today. Introduced myself to Guerrero. He was a little irritable stating that he has had more people meet with him today than the whole time he has been here. I explained that social work is not here on the weekend. I asked about his weekend? He said that he was very bored and that there should be more to do over the weekend other than use crayons or watercolors. He found that activity to be demeaning for a 56 year old man. He doesn't feel he needs to be here for psychiatric reasons and that he was just here for detox. I explained that the reason he was admitted here was due to suicidal statements. He stated he is not suicidal. He denied making these kind of statements on a regular basis and stated it was an isolated incident while he was intoxicated. He is willing to follow up in the dual [facility] here at [place]. He would most likely need to go to a 5-8 track, due to working from 5am-1:30pm at [employer]. 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 He reported stress around his current job. He is not happy that he was moved to this job after having a job with the [employer]. He stated his benefits have been significantly cut. He is currently looking for another job, but has been discouraged during that process. He reports drinking around 24oz of Vodka a day. He feels his drinking has increased over the past 6 months. He stated he has had long periods of sobriety, with the longest being 9 years. I asked if he is involved in AA? He reported past involvement, but no current involvement. I encouraged him to get reinvolved. He was given a meeting book. He currently lives with his girlfriend of 2 years. He said she would be the one picking him up today. He stated she is in support of him returning home today. Discharge discussed at team meeting and it sounds like all are inagreement with this plan. Guerrero was informed that he could call for a ride. Talked about having a 1:15 intake at [facility] tomorrow so he could go to work first.
--- NOTE | 2017-08-16 12:03 | SOCIAL WORKER PROG NOTE PSYCH ---
Social Work Progress Note Faxed Referral(s) Referred To: [facility] Transition of Care Documents sent: Health Summary Faxed to: [phone] Faxed by: Ayala Ingram Date faxed: 08/16/17 Time Faxed: [phone]
== END 2017-08-16 11:22 | DRG 885 ==
LOC: ERH 17:52 → CP SOUTH 08-13 08:13 → ERHI 08-13 08:13 → CP SOUTH 08-13 13:51 → ENRESERV 08-13 23:59 → CP SOUTH 08-16 11:22
PROVIDERS: Physician Assistant; Psychiatry & Neurology Psychiatry
DX: F39 Unspecified mood [affective] disorder (principal); F10.20 Alcohol dependence, uncomplicated
CPT/HCPCS: 36415; 80307; 82436; 93005; 93010; G0463; G0480; J3101; J3490

== ENCOUNTER → 2018-04-05 | Day surgery (SDC) | payer OTHER ==
[~2018-04-05] VITALS: Ht 182.9 cm; Wt 87.1 kg
[~2018-04-05] MED LIST: ATIVAN0.5 M1 PO; CYCLOBENZAPRINE10 M1 PO; GABAPENTIN300 M2 PO; MEDROL4 M2 PO; NALTREXONE HCL50 M1 PO; PERCOCET 5-3251 EACH PO; ROBAXIN500 M1 PO; TRAZODONE HCL50 M1 PO; VICODIN 5-3001 EACH PO
--- NOTE | 2018-04-05 09:09 | RADIOLOGY REPORT ---
EXAMINATION: XR LUMBAR SPINE CLINICAL INFORMATION: L4-L5 lumbar discectomy. COMPARISON: MRI of the lumbar spine 03/11/2018. TECHNIQUE: Single lateral radiograph of the lumbar spine. FINDINGS: Single lateral radiograph of the lumbar spine demonstrates a needle overlying the posterior elements of L5. Posterior facet hypertrophy at L5-S1. Multilevel marginal osteophytes. Significant disc space narrowing and bulky marginal osteophytes at L5-S1. Mild disc height loss at L4-L5. IMPRESSION: Marking needle projects over the L5 vertebral body.
--- NOTE | 2018-04-05 09:13 | RADIOLOGY REPORT ---
EXAMINATION: XR LUMBAR SPINE CLINICAL INFORMATION: L4/L5 lumbar discectomy image 2. COMPARISON: 04/05/2018 at 8:00 AM TECHNIQUE: Single lateral radiograph of the lumbar spine FINDINGS: A surgical instrument now projects over the posterior elements at L4-L5. Posterior facet hypertrophy at L5-S1. Intervertebral disc height loss at L4-L5 and L5-S1. IMPRESSION: Surgical instrument projects over the posterior elements at L4-L5.
--- NOTE | 2018-04-05 10:19 | Operative Report ---
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 His imaging studies identify a right caudally extruded L4 5 disc herniation with a large fragment medial to the right L5 pedicle and severe impingement of the right L5 nerve root. In light of his progressive course and moderately severe foot drop, patient presents for surgical intervention after a brief trial of nonoperative care. Operative/Procedure Note Note: Patient was taken to the operating room. After appropriate patient identification and surgical timeout, the patient underwent the smooth induction of general endotracheal anesthesia without incident. Once endotracheal tube was secured, patient was carefully turned to the prone position on the Yehuda frame taking care to assure points were well-padded. Lumbar region low back was widely prepped and draped usual sterile fashion using povidone iodine solution. A vertical midline skin incision was marked overlying the presumed L4 5 interspace and infiltrated with local anesthetic. A small gauge spinal needle was placed superficially and a localizing lateral lumbar x-ray was obtained to confirm the needle to be pointing to the pedicle of L5. Patient was given 2 g of IV Preoperative Prophylaxis. Skin incision was made with a 10 blade knife. Dissection was carried down through subcutaneous tissue with the Bovie to the lumbodorsal fascia. The fascia was incised in midline and a subperiosteal dissection of the lumbar paravertebral muscles was performed on the right exposing the spinous processes lamina and the medial aspect of the presumed L4 5 facet and a self-retaining retractor was placed beneath the muscle. A Miranda 4 elevator was placed under the presumed L4 lamina and intraoperative localizing lateral x-ray was obtained to confirm this to be at the correct level. Laminotomy of the inferior aspect of the right L4 lamina using combination the Midas Luis and Kerrison rongeurs skeletonizing the rostral aspect ligamentum flavum. Ligament was stripped in a rostral to caudal fashion with the Kerrisons exposing the underlying epidural fat and dura of the thecal sac and exiting right L5 root. We extended the laminotomy to the top of the L5 lamina and out to the level of the right L5 neural foramen skeletonizing the medial aspect of the pedicle of L5. Medial facetectomy of the L4 5 joint was performed using combination of Midas Luis and Kerrisons to facilitate the lateral exposure and working corridor. I with the thecal sac gently mobilized the midline under a Scovel hand-held retractor, we then exposed the disc space and just caudal to the L4 5 disc. Encapsulated extruded disc material was encountered. The overlying soft tissue capsule was coagulated with a bipolar and incised with an 11 blade knife and a rectangular fashion. Immediately a disc fragments were noted under the pseudocapsule. Using a small microhook, multiple sizable fragments of caudally extruded disc were worked out from the epidural space and but from beneath the right L5 root or passed off to the back table as specimen. The disc material was noted to extrude with some pressure [place] were removed. At this point a Greenlee elevator was used to palpate the ventral epidural space which showed to be widely patent. Likewise, using the Greenlee to palpate under and over the L5 root out the neuroforamen showed it to be fully decompressed and widely patent as well. The dural elements were noted to be pulsatile. The parent disc space was collapsed and spondylotic bone we elected not to enter the true disc space at C it was noted to be spin quite collapsed on imaging and there was no compression of the right lateral recess. The wound was copiously irrigated with bacitracin sterile saline irrigation. Meticulous hemostasis is achieved with bone wax on the cut bone surfaces and FloSeal in the epidural space. The patient was then Valsalva to 35 mmHg with no egress of blood or CSF and we began wound closure. Small pledget of thrombin-soaked Gelfoam was placed in the interlaminar defect. The lumbodorsal fascia was reapproximated with interrupted 0 Vicryl suture. 10 mL of long-acting esprolol was then infiltrated in the right lumbar paravertebral muscle for postoperative analgesia. Subcutaneous tissue was closed in layers with interrupted 20 and 3-0 Vicryl suture and the skin was closed with a running 4-0 Vicryl stitch. Wounds clean and dry. Steri-Strips and a sterile occlusive dressing was placed. Patient was returned to the supine position, awakened, extubated, and taken to PACU in stable condition. He was noted to be moving all 4 extremities at the completion of the case. All sponge, needle, and injuring counts were correct at the completion of the procedure 3. Findings: Caudally extruded right L4 5 disc herniation with severe impingement of the right L5 root just proximal to the neuroforamen and medial to the L5 pedicle Discharge Disposition: PACU
== END ==
LOC: STS 01:52
DX: M51.16 Intervertebral disc disorders with radiculopathy, lumbar region (principal); M21.371 Foot drop, right foot; G62.9 Polyneuropathy, unspecified; F17.200 Nicotine dependence, unspecified, uncomplicated
CPT/HCPCS: 36415; 72020; C9290; J2250